=== PATIENT | female | born 1960 | race Caucasian/White ===

== ENCOUNTER 2016-08-29 20:33 | Emergency (ER) | payer MEDICARE, MEDICAID ==
[~2016-08-29] VITALS: Ht 182.9 cm; Wt 83.9 kg
--- NOTE | 2016-08-29 21:16 | Emergency Room Report ---
History of Present Illness General Chief Complaint: Pain Source: Patient Present Illness HPI This is a 56-year-old female with a history of peripheral neuropathy bilaterally. She is on [place] for her. She also see a slack line yarder monthly to have the cast of her great toe bilaterally shave down. Because of insurance change hasn't seen a slack line yarder. She complaining of increasing pain to the right foot and great toe. Today she noted it was blistered up and red. Tracking up her right foot. Very painful. Throbbing in nature. 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 No systemic fever. Pain is 10 out of 10. Throbbing and sharp in nature. Allergies: Coded Allergies: No Known Allergies (Unverified , 08/29/16) Patient History Past Medical History: see triage record, old chart reviewed Past Surgical History: other Pertinent Family History: none Social History: Denies: drug use Now: No Immunizations: other Reviewed Nursing Documentation: PMH: Agreed, PSxH: Agreed Nursing Documentation-PMH Past Medical History: No History, Except For History Of Psychiatric Problem: Yes - Anxiety Review of Systems Eye: Denies: blurred vision, eye pain ENT: Denies: ear pain, nose congestion, throat swelling Respiratory: Denies: cough, shortness of breath Cardiovascular: Denies: chest pain, palpitations Gastrointestinal: Denies: abdominal pain, diarrhea, nausea, vomiting Musculoskeletal: Denies: back pain, joint pain Skin: Denies: rash Neurological: Denies: headache, numbness Endocrine: Denies: increased thirst, increased urine Hematologic/Lymphatic: Denies: easy bruising All Other Systems: negative except mentioned in HPI Physical Exam Vital Signs Date Time Temp Pulse Resp B/P Pulse Ox O2 Delivery O2 Flow Rate FiO2 08/29/16 20:54 97.7 92 20 111/68 100 Room Air vitals normal. Sp02 EP Interpretation: reviewed, normal General Appearance: well appearing, no apparent distress, alert Head: normocephalic, atraumatic Eyes: bilateral eye EOMI, bilateral eye PERRL ENT: hearing grossly normal, normal pharynx Neck: full range of motion, supple, no meningismus Respiratory: chest non-tender, lungs clear, normal breath sounds Cardiovascular #1: regular rate, rhythm, no murmur Gastrointestinal: normal bowel sounds, non tender, no mass, no organomegaly, no bruit, non-distended Musculoskeletal: back normal, normal range of motion, other - Right great toe: She is a large callus on the lateral anterior aspect. She also has a necrotic blistered about 1.5 cm. The toe is erythematous and has mild edema. There is some tenderness along the the foot. No crepitance. Sensation normal. Pulse normal. Psychiatric: mood/affect normal Skin: warm/dry Procedures Incision and Drainage Incision and Drainage : Consent: Verbal Site: right great toe Blade Size: 11 I & D Procedure: betadine prep Wound Location: lower extremity Irrigated w/ Saline (ccs): 500 Patient Tolerated: Well Complications: None Progress I made a 1 cm incision over necrotic skin. Small amount of pus expressed. Good pink/reddish tissue underneath. Medical Decision Making Diagnostic Impression: Primary Impression: Abscess of toe of right foot Additional Impression: Neuropathy ER Course Patient with an abscess of the toe. I I&D . Cultures sent. Antibiotic given. No deep infection. No evidence of necrotizing fasciitis. Last Vital Signs Date Time Temp Pulse Resp B/P Pulse Ox O2 Delivery O2 Flow Rate FiO2 08/29/16 20:54 97.7 92 20 111/68 100 Room Air Status: improved Disposition: HOME, SELF-CARE Condition: Stable Scripts Hydrocodone Bit/Acetaminophen 5-325* (NORCO 5-325*) 1 Each Tablet 1 TAB ORAL Q6H Y for For Pain, #20 TAB 0 Refills Prov: RADHA HERNANDEZ M.D. 08/29/16 Clindamycin Hcl (CLINDAMYCIN HCL) 300 Mg Capsule 300 MG ORAL THREE TIMES A DAY, #21 CAP Prov: RADHA HERNANDEZ M.D. 08/29/16 Additional Instructions: Follow up with Dr. Hagen in 2 days for recheck. Return if symptoms worsen. Keep wound clean. RADHA HERNANDEZ M.D. Aug 29, 2016 21:16
[2016-08-29] MEDS ORDERED: NORCO 5-325 TA1 EACH ORAL (21:40)
[2016-08-29] MEDS ORDERED: CLINDAMYCIN HC300 MG ORAL (21:40)
[2016-08-29] MEDS ORDERED: Norco 5mg/325mg tab ORAL ONE (21:45)
[2016-08-29] MEDS ORDERED: Clindamycin 150mg cap ORAL ONE (21:45)
[2016-08-29 21:58] VITALS: BP 126/82
== END 2016-08-29 22:05 | disposition home or self-care (01) ==
LOC: EMR 21:09
DX: L02.611 Cutaneous abscess of right foot (principal); G62.9 Polyneuropathy, unspecified; F41.9 Anxiety disorder, unspecified
CPT/HCPCS: 10060; 87070; 87205

== ENCOUNTER 2016-09-28 01:37 | Emergency (ER) | payer MEDICARE, MEDICAID ==
[~2016-09-28] VITALS: Ht 182.9 cm; Wt 79.4 kg
[~2016-09-28 01:37] MED LIST: CLINDAMYCIN HC300 MG ORAL; NORCO 5-325 TA1 EACH ORAL
[2016-09-28 01:50] VITALS: BP 104/70
[2016-09-28] MEDS ORDERED: TdaP Vaccine 0.5ml Syr IM ONE (02:15)
[2016-09-28] MEDS ORDERED: Bacitracin Oint UD TOPIC ONE ×2 (03:04→03:15)
[2016-09-28] MEDS ORDERED: KEFLEX500 MG ORAL (03:12)
--- NOTE | 2016-09-28 03:13 | Emergency Room Report ---
History of Present Illness General Chief Complaint: Laceration Source: Patient, Medical Record Present Illness HPI This is a 56-year-old female presents with chief complaint of left fifth toe injury. She opened of rage and a heavy last ER fell directly onto her foot. She sustained a laceration to her toe. Was bleeding. Severe pain 10 out of 10. Worse with movement. Better with rest. Denies any other injury. No radiation the Allergies: Coded Allergies: No Known Allergies (Unverified , 08/29/16) Patient History Past Medical History: see triage record, old chart reviewed Past Surgical History: other Pertinent Family History: none Social History: Denies: drug use Now: No Immunizations: other Reviewed Nursing Documentation: PMH: Agreed, PSxH: Agreed Nursing Documentation-PMH Past Medical History: No History, Except For History Of Psychiatric Problem: Yes - Depression Hx Seizures: Yes Review of Systems Eye: Denies: blurred vision, eye pain ENT: Denies: ear pain, nose congestion, throat swelling Respiratory: Denies: cough, shortness of breath Cardiovascular: Denies: chest pain, palpitations Gastrointestinal: Denies: abdominal pain, diarrhea, nausea, vomiting Musculoskeletal: Reports: joint pain, Denies: back pain Skin: Denies: rash Neurological: Denies: headache, numbness Endocrine: Denies: increased thirst, increased urine Hematologic/Lymphatic: Denies: easy bruising All Other Systems: negative except mentioned in HPI Physical Exam Vital Signs Date Time Temp Pulse Resp B/P Pulse Ox O2 Delivery O2 Flow Rate FiO2 09/28/16 01:46 97.7 84 14 104/70 98 Room Air vitals normal Sp02 EP Interpretation: reviewed, normal General Appearance: well appearing, no apparent distress, alert Head: normocephalic, atraumatic Eyes: bilateral eye EOMI, bilateral eye PERRL ENT: hearing grossly normal, normal pharynx Neck: full range of motion, supple, no meningismus Respiratory: chest non-tender, lungs clear, normal breath sounds Cardiovascular #1: regular rate, rhythm, no murmur Gastrointestinal: normal bowel sounds, non tender, no mass, no organomegaly, no bruit, non-distended Musculoskeletal: back normal, normal range of motion, other - Left fifth toe: There is a vertical 3 cm laceration over the phalange. Tender to palpation. No other deformity. Sensation normal. Dorsalis pedis pulses 2+. Neurologic: alert, oriented x3 Psychiatric: mood/affect normal Skin: warm/dry Procedures Laceration/Wound Repair Laceration/Wound Repair : Consent: Verbal Wound Location: lower extremity Wound's Depth, Shape: linear, flap, contused tissue Wound Length (cm): 3 Wound Explored: clean Irrigated w/ Saline (ccs): 1000 Betadine Prep?: No Anesthesia: 1% Lidocaine Volume Anesthetic (ccs): 2 Wound Repaired With: sutures Suture Size/Type: 4:0, proline Number of Sutures: 6 Patient Tolerated: Well Complications: None Medical Decision Making Diagnostic Impression: Primary Impression: Laceration of toe of left foot Qualified Codes: S91.115A - Laceration without foreign body of left lesser toe (s) without damage to nail, initial encounter ER Course Is present with laceration to her toe. She has increased risk of infection secondary to location. Antibiotics given. No fracture. We'll discharge home. Other X-Ray Diagnostic Results Other X-Ray Diagnostic Results : X-Ray Ordered: X-ray foot, left Date: Sep 28, 2016 Time: 03:12 EP Interpretation: Yes Findings: no fractures, no dislocation, no soft tissue swelling Number of Views: 3 Last Vital Signs Date Time Temp Pulse Resp B/P Pulse Ox O2 Delivery O2 Flow Rate FiO2 09/28/16 01:46 97.7 84 14 104/70 98 Room Air Status: improved Disposition: HOME, SELF-CARE Condition: Stable Scripts Cephalexin* (KEFLEX*) 500 Mg Capsule 500 MG ORAL TID, #21 CAP 0 Refills Prov: RADHA HERNANDEZ M.D. 09/28/16 Patient Instructions: Laceration Care, Adult Additional Instructions: Followup with your DrPrashant in 2-3 days for wound check. Sutures out in 7-10 days. Return for evidence of infection or fever. Return for increasing pain. RADHA HERNANDEZ M.D. Sep 28, 2016 03:13
[2016-09-28] MEDS ORDERED: Cephalexin 500mg cap ORAL ONE (03:15)
[2016-09-28] MEDS ORDERED: Norco 5mg/325mg tab ORAL ONE (03:15)
[2016-09-28 03:25] VITALS: BP 94/62
--- NOTE | 2016-09-28 11:59 | Diagnostic Imaging Report ---
Indication: TRAUMA Technique: 3 views left foot Comparison: none Findings: There is pes cavus deformity. There is hallux valgus and metatarsus adductus. There is mild hammertoe deformity of the third through fifth digits. No acute fractures. No dislocations. Joint spaces are preserved. Impression: No acute process. Findings as noted
== END 2016-09-28 03:25 | disposition home or self-care (01) ==
LOC: EMR 02:05
DX: S91.115A Laceration without foreign body of left lesser toe(s) without damage to nail, initial encounter (principal); Z23 Encounter for immunization; W19.XXXA Unspecified fall, initial encounter; Y93.9 Activity, unspecified; Y92.9 Unspecified place or not applicable
CPT/HCPCS: 90471; 90715; 96372